=== PATIENT | male | born 1985 | race Caucasian/White ===

== ENCOUNTER 2016-11-06 09:14 | Emergency (ER) | payer MEDICAID ==
--- NOTE | 2016-11-06 09:17 | EDPHY ---
H & P HPI/ROS: HPI CHIEF COMPLAINT: Laceration palmar aspect right hand HISTORY OF PRESENT ILLNESS: This patient 30-year-old male, otherwise healthy no significant medical history, tetanus shot is not up-to-date, presents to the emergency room with a laceration to the palmar surface lateral aspect right hand base of the 5th digit. No tendon involvement. No arterial vomit. Neurovascularly intact otherwise. No foreign bodies visualized. 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 Denies any other areas of injury. Past Medical History: Denies medical history Past Surgical History: Denies surgical Social History: Daily smoker, denies illicit drugs or alcohol Family History: Noncontributory ROS REVIEW OF SYSTEMS: A comprehensive 10 point review of systems is otherwise negative aside from elements mentioned in the history of present illness. Exam Constitutional appears well nontoxic triage nursing summary reviewed, vital signs reviewed, awake/alert. Eyes normal conjunctivae and sclera, EOMI, PERRLA. HENT normal inspection, atraumatic, moist mucus membranes, no epistaxis, neck supple/ no meningismus, no raccoon eyes. Respiratory clear to auscultation bilaterally, normal breath sounds, no respiratory distress, no wheezing. Cardiovascular rate normal, regular rhythm, no murmur, no edema, distal pulses normal. Gastrointestinal soft, non-tender, no rebound, no guarding, normal bowel sounds, no distension, no pulsatile mass. Genitourinary no CVA tenderness. Musculoskeletal no midline vertebral tenderness, full range of motion, no calf swelling, no tenderness of extremities, no meningismus, good pulses, neurovascularly intact. Skin right hand palmar aspect: Lateral aspect palmar side base of the 5th digit there is a 4 cm horizontally clean laceration. There is no arterial vomit. No tendon vomit. Good body mechanic strength. Full range of motion. No flexor tendon involvement. No deep structures visualized or bony abnormality. Neurologic awake, alert and oriented x 3, AAOx3, moves all 4 extremities equally, motor intact, sensory intact, CN II-XII intact, normal cerebellar, normal vision, normal speech. Psychiatric normal mood/affect. Heme/Lymph/Immune no lymphadenopathy. Differential Diagnosis: Includes but is not limited to in a particular order laceration, tendon injury, arterial injury, soft tissue injury, need for tetanus shot. Medical Decision Making: Plan for this patient will update his tetanus shot, his laceration need to be sterilely closed in washed out by myself. Re-evaluation: Laceration Repair Procedure: Verbal Consent was obtained, Under sterile conditions, The patient had lidocaine with epinephrine used approximately 4ccs to local anesthetize the 4 cm horizontal right palmar hand Laceration. The wound was copiously irrigated with sterile fluid, the wound was explored for foreign bodies there were none visualized, the wound was explored with a sterile glove to the base. There are no deep structures involved, including no arterial injury. FOUR 5.O PROLENE interrupted Sutures were placed in this patient's laceration. He had good close approximation of the wound edges. He Tolerated this well. Patient understands keep his wounds clean dry and protected. Watch for signs of infection. Suture removal in 10-12 days. Source: Patient Constitutional: Initial Vital Signs Temperature (C) 36.4 C 11/06/16 09:17 Heart Rate 79 11/06/16 09:17 Respiratory Rate 18 11/06/16 09:17 Blood Pressure 114/73 11/06/16 09:17 O2 Sat (%) 96 11/06/16 09:17 O2 Delivery Mode Room Air Allergies/Adverse Reactions: No Known Allergies Allergy (Unverified 11/06/16 09:20) Home Medications: Medication Instructions Recorded NK [No Known Home Meds] 11/06/16 Medical Decision Making - Data Points Medications Given: Discontinued Medications Diphtheria/Tetanus/Acell Pertussis (Boostrix) 0.5 ml IM .ONCE ONE Stop: 11/06/16 09:21 Last Admin: 11/06/16 09:25 Dose: 0.5 ml Departure - Departure Disposition: Home, Routine, Self-Care Clinical Impression: Laceration, Laceration Condition: Good Instructions: Laceration (ED), Care For Your Stitches (ED) Additional Instructions: 1. Keep her wound dry, protected. 2. Watch for signs of infection this includes redness, swelling, drainage. 3. Your sutures need to be removed in 10-12 days.
[2016-11-06] MEDS ORDERED: TDAP ADULT 0.5 ML INJ (BOOSTRIX) IM ONE (09:20)
[2016-11-06 09:24] VITALS: BP 114/73; PULSE 79; RESP 18; TEMP 97.5; O2SAT 96
== END 2016-11-06 09:35 | disposition home or self-care (01) ==
LOC: CED 09:14
PROC: 0HQFXZZ Repair Right Hand Skin, External Approach (ICD-10-PCS; principal; 2016-11-06)
DX: S61.411A Laceration without foreign body of right hand, initial encounter (principal); F17.200 Nicotine dependence, unspecified, uncomplicated; Z23 Encounter for immunization; W27.8XXA Contact with other nonpowered hand tool, initial encounter; Y92.69 Other specified industrial and construction area as the place of occurrence of the external cause; Y99.0 Civilian activity done for income or pay; Y93.89 Activity, other specified